=== PATIENT | male | born 1985 | race Caucasian/White ===

== ENCOUNTER 2021-02-23 14:26 | Emergency (ER) | payer MEDICAID, SELFPAY ==
[2021-02-23] VITALS (18 sets, daily range): BP systolic 107–142; BP diastolic 59–87; PULSE 78–99; RESP 11–22; TEMP 36.7–36.9; O2SAT 91–98; BMI 25.7
--- NOTE | 2021-02-23 14:23 | ECG_ITS ---
APPROVED REPORT Exam: Resting ECG HR:106 bpm ECG Measurements Heart Rate 106 AXES NV 138 P 55 QRSd 98 QRS 49 QT 342 T 38 QTc 454 Conclusion Sinus tachycardia Otherwise normal ECG Electronically signed by : Jamal Mason, 02/23/2021 21:27:33
--- NOTE | 2021-02-23 14:29 | HMH.EDGENADL ---
ED Disposition Condition on Discharge: Fair - Critical Care Critical Care Time: No <Richard Sauceda - Last Filed: 02/23/21 19:53> <Farhad Reilly - Last Filed: 02/23/21 22:50> Clinical Impression: Poisoning by opiate or related narcotic Drug overdose Qualifiers: Encounter type: initial encounter Injury intent: accidental or unintentional Qualified Code(s): T50.901A - Poisoning by unspecified drugs, medicaments and biological substances, accidental (unintentional), initial encounter Disposition: Home, Self-Care Instructions: DI for Drug Overdose in Adults Additional Instructions: consider drug rehab and recheck if needed Referrals: Provider,Account, PHARMD [Primary Care Provider] - Attestation: On 02/23/21, the high probability of a clinically significant, sudden or life threatening deterioration of the following system(s) required my full and direct attention, intervention and personal management. The time I documented below is in addition to time spent performing reported procedures but includes the following listed in this critical care notation. Medical Decision Making - Medical Records Medical records reviewed: Yes: I reviewed the patient's medical records. - Klaus Inquiry Pt receiving controlled substance: No - Lab Data Lab results reviewed: Yes: I reviewed the patient's lab results. Result diagrams: 02/23/21 15:35 - ECG Data Tracing #1 I reviewed this ECG and interpreted as documented below: ECG initial impression date: 02/23/21 ECG initial impression time: 14:25 <Richard Sauceda - Last Filed: 02/23/21 19:53> - Lab Data Result diagrams: 02/23/21 20:38 02/23/21 15:35 - Radiology Data #1 Image(s): Chest Image Reviewed: Yes I reviewed the patient's radiology image Preliminary Findings: Abnormal (nonspecific ) - CT Data CT Scan: Head Time Received: 22:[address] Reviewed: Yes: I have viewed the radiologist's interpretation Preliminary Findings: Abnormal (nonspecific) <Farhad Reilly - Last Filed: 02/23/21 22:50> Vital Signs: 02/23/21 14:27 02/23/21 15:30 02/23/21 16:00 Temperature 98.5 F Temperature Source Rectal Pulse Rate 92 H 88 Pulse Rate [Right] 85 Respiratory Rate 14 14 14 Blood Pressure 129/64 140/76 Blood Pressure [Right Arm] 130/61 Blood Pressure Mean 85 Blood Pressure Mean [Right Arm] 84 02 Sat by Pulse Oximetry 95 96 98 Oxygen Delivery Method Nasal Cannula Oxygen Flow Rate (LPM) 2 02/23/21 16:07 02/23/21 16:30 02/23/21 17:00 Temperature Temperature Source Pulse Rate 85 88 89 Pulse Rate [Right] Respiratory Rate 16 14 Blood Pressure 140/71 119/71 119/71 Blood Pressure [Right Arm] Blood Pressure Mean 89 Blood Pressure Mean [Right Arm] 02 Sat by Pulse Oximetry 98 94 L 94 L Oxygen Delivery Method Nasal Cannula Nasal Cannula Oxygen Flow Rate (LPM) 2 2 02/23/21 17:01 02/23/21 17:30 02/23/21 18:00 Temperature Temperature Source Pulse Rate 89 85 84 Pulse Rate [Right] Respiratory Rate 12 15 11 L Blood Pressure 109/65 L 122/73 107/61 L Blood Pressure [Right Arm] Blood Pressure Mean Blood Pressure Mean [Right Arm] 02 Sat by Pulse Oximetry 91 L 95 94 L Oxygen Delivery Method Room Air Oxygen Flow Rate (LPM) 02/23/21 18:50 02/23/21 19:00 02/23/21 19:30 Temperature Temperature Source Pulse Rate 86 85 78 Pulse Rate [Right] Respiratory Rate 16 14 12 Blood Pressure 110/62 123/67 115/63 Blood Pressure [Right Arm] Blood Pressure Mean Blood Pressure Mean [Right Arm] 02 Sat by Pulse Oximetry 96 95 96 Oxygen Delivery Method Room Air Oxygen Flow Rate (LPM) 02/23/21 20:00 02/23/21 20:31 02/23/21 21:00 Temperature Temperature Source Pulse Rate 84 86 Pulse Rate [Right] Respiratory Rate 11 L 14 13 Blood Pressure 137/76 142/87 H 118/70 Blood Pressure [Right Arm] Blood Pressure Mean Blood Pressure Mean [Right Arm] 02 Sat by Pulse Oximetr
--- NOTE | 2021-02-23 15:05 | PC.NURSE ---
SOILED PATIENT CLEANED AT THIS TIME.
--- NOTE | 2021-02-23 15:10 | PC.NURSE ---
Pt given bed bath to the best of our abilities. Pt is moaning and flailing around not making purposeful movements or sounds.
[2021-02-23 15:45] LABS: Chloride 105 mmol/L (98-107); Potassium 3.8 mmoL/L (3.5-5.1); Sodium 140 mmol/L (136-145)
[2021-02-23 15:48] LABS: Alanine Aminotransferase 27 U/L (12-78); Albumin Level 4.6 g/dl (3.5-5.0); Albumin/Globulin Ratio 1.4 (1.1-1.8); Alkaline Phosphatase 112 U/L (38-126); Anion Gap 11.8 mEq/L (5-15); Aspartate Amino Transferase 40 U/L (17-59); Bilirubin,Total 0.4 mg/dl (0.2-1.3); Blood Urea Nitrogen 18 mg/dl (9-20); Calcium 8.8 mg/dl (8.4-10.2); Carbon Dioxide 27 mmol/L (22.0-30.0); Creatinine Clearance Estimated 145 mL/min (50-200); Estimated Glomerular Filt Rate 97 ml/min (>60); GFR (African American) 117 ML/MIN (>60); Globulin 3.2 g/dL (1.3-3.2); Glucose 102 mg/dl (74-100); Total Protein,Serum 7.8 g/dl (6.3-8.2)
[2021-02-23 16:04] LABS: Amphetamine/Metha Screen,Urine Negative ng/ml (<1000)
[2021-02-23 16:05] LABS: Barbiturates Screen,Urine Negative ng/ml (<200)
[2021-02-23 16:06] LABS: Benzodiazepines Screen,Urine Positive ng/ml (<200); Cannabinoid Screen,Urine Positive ng/ml (<50)
[2021-02-23 16:07] LABS: Cocaine Screen,Urine Negative ng/ml (<300)
[2021-02-23 16:08] LABS: Methadone Screen,Urine Negative ng/ml (<300); Opiate Screen,Urine Negative ng/ml (<300)
[2021-02-23 16:09] LABS: Phencyclidine Screen,Urine Negative ng/ml (<25)
--- NOTE | 2021-02-23 18:31 | PC.NURSE ---
Patient is awake and upright in bed. Still unable to answer questions at this time
--- NOTE | 2021-02-23 18:36 | PC.NURSE ---
Pt sitting up moaning at this time.
--- NOTE | 2021-02-23 20:34 | CT_ITS ---
PROCEDURE INFORMATION: Exam: CT Head Without Contrast Exam date and time: 02/23/2021 8:34 PM Age: 35 years old Clinical indication: Altered mental status/memory loss; Patient HX: AMS, PT states cant see, od TECHNIQUE: Imaging protocol: Computed tomography of the head without contrast. Radiation optimization: All CT scans at this facility use at least one of these dose optimization techniques: automated exposure control; mA and/or kV adjustment per patient size (includes targeted exams where dose is matched to clinical indication); or iterative reconstruction. COMPARISON: No relevant prior studies available. FINDINGS: Brain: No parenchymal hematoma. No acute-appearing loss of rae-white differentiation. No midline shift. Extra-axial space: Posterior fossa arachnoid cyst left of the midline measuring 3.4 x 2.1 cm. Cerebral ventricles: Within expected limits for age. No ventricular outflow obstruction. Paranasal sinuses: Nonaggressive mucosal thickening in the right frontal sinus and ethmoid sinuses. Mastoid air cells: Visualized mastoid air cells are well aerated. Bones/joints: Unremarkable. No acute fracture. Soft tissues: Unremarkable. IMPRESSION: No acute intracranial abnormality.
--- NOTE | 2021-02-23 20:35 | XR_ITS ---
PROCEDURE INFORMATION: Exam: XR Chest Exam date and time: 02/23/2021 8:35 PM Age: 35 years old Clinical indication: Shortness of breath; Patient HX: SOA, PT has AMS, no good HX; Additional info: SOB TECHNIQUE: Imaging protocol: XR of the chest. Views: 1 view. COMPARISON: No relevant prior studies available. FINDINGS: Lungs: Linear subsegmental atelectasis near the right lung base. No airspace consolidation. No pulmonary edema. Pleural spaces: No pleural effusion. No pneumothorax. Heart/Mediastinum: Normal heart size. Bones/joints: Unremarkable. IMPRESSION: Linear subsegmental atelectasis at the right lung base.
[2021-02-23 20:50] LABS: Basophils % 0.3 % (0.1-2.0); Eosinophils # 0.1 K/mm3 (0.0-0.4); Eosinophils % 1.1 % (0.1-12.0); Hematocrit 42.1 % (42.0-52.0); Hemoglobin 14.8 g/dL (14.1-18.0); Lymphocytes # 2.3 K/mm3 (0.7-4.5); Lymphocytes % 21.5 % (10-50); Mean Corpuscular HGB Conc 35.2 g/dL (31.8-35.4); Mean Corpuscular Hemoglobin 29.9 pg (27.0-31.2); Mean Corpuscular Volume 84.9 fl (80-94); Mean Platelet Volume 8.8 fl (7.4-10.4); Monocytes # 0.6 K/mm3 (0.1-1.0); Monocytes % 5.1 % (1.7-9.3); Neutrophils # 7.9 K/mm3 (1.8-7.8); Platelet Count 228 K/mm3 (142-424); Red Blood Count 4.96 M/mm3 (4.60-6.20); Red Cell Distribution Width 13.7 % (11.5-17.5); White Blood Count 10.9 K/mm3 (4.8-10.8)
[2021-02-23 20:56] LABS: Acetaminophen < 10 ug/ml (10-30); Creatine Kinase 123 U/L (55-170); Salicylate < 1.0 mg/dL (2.0-20.0)
[2021-02-23 20:57] LABS: Ethyl Alcohol < 10 mg/dl (0-10)
[2021-02-23 21:00] LABS: C-Reactive Protein 36.8 mg/L (0-4)
[2021-02-23 21:13] LABS: Erythrocyte Sedimentation Rate 39 mm/hr (0-15)
[2021-02-23 21:14] LABS: Procalcitonin 0.074 ng/mL (0.0-2.0); Troponin I < 0.01 ng/ml (0.00-0.034)
--- NOTE | 2021-02-23 21:50 | PC.NURSE ---
Pt awake with peyton states his vision is normal at this time
[2021-02-23 22:16] LABS: Microscopic, Urine URINE MICROSCOPIC (MICROSCOPIC)
[2021-02-23 22:18] LABS: Appearance,Urine CLOUDY (Clear); Bilirubin,Urine Negative (Negative); Blood, Urine Negative (Negative); Color,Urine YELLOW (Yellow); Glucose,Urine (UA) Negative (Negative); Ketones,Urine Negative (Negative); Leukocyte Esterase,Urine Negative (Negative); Nitrate,Urine Negative (Negative); PH,Urine 5.5 (5.0-8.5); Protein,Urine 2+ (Negative); Specific Gravity, Urine >= 1.030 (1.005-1.030); Urobilinogen,Urine 0.2 EU/dl (0.2)
[2021-02-23 22:26] LABS: Amorphous Sediment,Urine 1+ /lpf; Bacteria,Urine 1+ /lpf; Sperm,Urine 1+ /lpf; Squamous Epithelial Cell,Urine Occasional #/hpf (0-5)
--- NOTE | 2021-02-23 23:15 | PC.NURSE ---
Pt was lethargic and I notice a white powder substance under his right nare, I believe his fiance gave him more Heroin after the Narcan, another 2mg Narcan was given and pt woke up and become A&O x 4. Pt was Monitored for 15 minutes and he insited on going home. Pt was wheeled to the car and instructions for him to do no more Heroin to pt and Fiance. Pt agreed to inpatient rehab.
== END 2021-02-23 23:15 | disposition home or self-care (01) ==
PROVIDERS: Emergency Medicine; Emergency Provider Family Medicine
DX: T40.1X1A Poisoning by heroin, accidental (unintentional), initial encounter (principal); R55 Syncope and collapse; Y92.89 Other specified places as the place of occurrence of the external cause
CPT/HCPCS: 70450; 71045; 80053; 80305; 80329; 81001; 82550; 84145; 84484; 85025; 85651; 86140; 93005; 96375; 96376; 99283; J2310